=== PATIENT | male | born 1960 | race Caucasian/White ===

== ENCOUNTER → 2018-10-29 06:35 | Outpatient (CLI) | payer OTHER, SELFPAY ==
--- NOTE | 2018-10-29 | DI.CT.S_ITS ---
PROCEDURE: CT ABDOMEN PELVIS WO CON INDICATIONS: RECURRENT UTI TECHNIQUE: Noncontrast 5 mm thick sections acquired from the diaphragms to the symphysis. 5 mm thick coronal and sagittal reformats were then performed. For radiation dose reduction, the following was used: automated exposure control, adjustment of mA and/or kV according to patient size. COMPARISON: None. FINDINGS: Image quality: Excellent. Evaluation of the solid organs is limited without IV contrast. Lung bases: Lung bases are clear. Heart size is normal. Urinary system: Both kidneys are normal in size. Several nonobstructing kidney stones on the left. Three inferior pole stones measuring 8, 5, and 5 mm, (2/36, 41, 42), unchanged. At least 2 additional punctate stones. A punctate nonobstructing calculus in the mid right kidney, (4/34). No hydronephrosis or perinephric fat stranding. A few cortical hypodensities which are too small to further characterize. Both ureters appear non-dilated throughout their expected courses. Bladder wall thickness is normal. Punctate calculus layering in the bladder, (2/80). Other solid organs: Liver is normal in size. Numerous benign hepatic cysts. Gallbladder is unremarkable. Pancreas is normal in contours. Spleen is normal in size. No adrenal nodules. Peritoneum and bowel: Unenhanced bowel loops demonstrate normal wall thickness and caliber. The appendix is normal. No free fluid or air. Nodes and vessels: No retroperitoneal or mesenteric adenopathy by size criteria. Aorta and inferior vena cava are normal in caliber. Minimal calcified atherosclerotic plaque in the aorta. Abdominal wall: Small fat-containing paraumbilical hernia. Pelvis: No free pelvic fluid. Prostatomegaly. No inguinal hernias or adenopathy. Bones: No suspicious bony lesions. No vertebral body compression fractures. IMPRESSION: 1. Three small nonobstructing kidney stones at the inferior pole the left kidney. 2. Punctate calculus layering in the urinary bladder. No hydroureteronephrosis. Dictated by: Zain Infante M.D. on 10/29/2018 at 7:39 Approved by: Zain Infante M.D. on 10/29/2018 at 7:50
== END ==
PROVIDERS: Family Provider Family Medicine; PCP Family Medicine; Visit Provider Urology
DX: N20.0 Calculus of kidney (principal); K42.9 Umbilical hernia without obstruction or gangrene
CPT/HCPCS: 74176

== ENCOUNTER → 2019-02-22 11:54 | Outpatient (CLI) | payer OTHER, SELFPAY ==
--- NOTE | 2019-02-22 | DI.US.S_ITS ---
PROCEDURE: US RENAL COMPLETE INDICATIONS: CALCULUS OF KIDNEY TECHNIQUE: Real-time scanning was performed of the kidneys and bladder, with image documentation. COMPARISON: [facility], CR, XR ABDOMEN 1 VIEW, 06/11/2018, 12:26. [facility], CT, CT ABDOMEN PELVIS WO CON, 10/29/2018, 6:48. FINDINGS: Kidneys: Kidneys are normal in size. Right kidney measures 13.2 cm long; left kidney measures 11.6 cm long. Right renal cortical thickness is 1.3 cm; left renal cortical thickness is 1.5 cm. Renal cortical echotexture is normal. No hydronephrosis. 2 shadowing echogenic foci seen involving the inferior pole of the left kidney, largest measuring 12 mm related to small nonobstructing calcifications as was seen on prior CT. Bladder: Pre-void bladder volume is 170 mL. Post-void residual is 47 mL. Pre-void images demonstrate no intraluminal masses or stones. On pre-void images, neither ureteral jets are noted with color Doppler interrogation. (Of note, ureteral jets may not be detectable in up to 25% of cases due to insufficient differences in specific gravity between ureteral and bladder urine). Mild bladder wall trabeculation was noted. Miscellaneous: No free pelvic fluid. Hepatic lobe cyst measuring 2.1 cm. IMPRESSION: 1. 2 nonobstructing calculi involving the lower pole of the left kidney; otherwise the kidneys appear normal bilaterally. 2. 47 cc post void residual and mild lateral posterior bladder wall trabeculations. 3. Inferior right hepatic lobe cyst. Dictated by: Scot Del Rio [facility] Interpreted: Aldo Dahl MD on 02/22/2019 at 13:21 Approved by: Aldo Dahl M.D. on 02/22/2019 at 15:45
== END ==
PROVIDERS: Family Provider Family Medicine; PCP Family Medicine; Visit Provider Urology
DX: N20.0 Calculus of kidney (principal); K76.89 Other specified diseases of liver
CPT/HCPCS: 76770